=== PATIENT | female | born 1995 ===

== ENCOUNTER 2025-04-19 07:30 | Inpatient (IN) | payer BC ==
[2025-04-19 08:35] LABS: APPEARANCE,URINE CLEAR; BILIRUBIN,URINE NEGATIVE (NEGATIVE); COLOR,URINE YELLOW; GLUCOSE,URINE 100 mg/dL (NEGATIVE); KETONES,URINE NEGATIVE (NEGATIVE); LEUKOCYTE ESTERASE,URINE NEGATIVE (NEGATIVE); NITRITE,URINE NEGATIVE (NEGATIVE); OCCULT BLOOD,URINE NEGATIVE (NEGATIVE); PH,URINE 6.5 (5.0-8.0); PROTEIN,URINE NEGATIVE (NEGATIVE); UROBILINOGEN,URINE 0.2 EU/dL (<2.0)
[2025-04-19 08:41] LABS: BACTERIA,URINE FEW (NEGATIVE); EPITHELIAL CELLS,URINE RARE (NONE-FEW); RBC,URINE 0-1 (0-2/HPF); WBC,URINE 0-2 (0-5/HPF)
[2025-04-19] MEDS ORDERED: Methylergonovine 0.2 MG/1 ML Amp IM PRN (09:18)
[2025-04-19] MEDS ORDERED: Sodium Chloride 0.9% 2.5 ML Syringe FLUSH PRN (09:18)
[2025-04-19] MEDS ORDERED: Misoprostol 200 MCG Tab PO PRN (09:18)
[2025-04-19] MEDS ORDERED: Terbutaline 1 MG/ML SDV SUBCUT PRN (09:18)
[2025-04-19] MEDS ORDERED: Sodium Chloride 0.9% 20 ML SDV IV PRN (09:18)
[2025-04-19] MEDS ORDERED: Butorphanol 1 MG/ML SDV IVPUSH PRN (09:18)
[2025-04-19] MEDS ORDERED: Water For Irrigation,Sterile 1,000 ML Container IRR PRN (09:18)
[2025-04-19] MEDS ORDERED: Carboprost Tromethamine 250 MCG/1 mL Vial IM PRN (09:18)
[2025-04-19] MEDS ORDERED: Misoprostol 25 MCG (1/4 of 100 MCG) Tab VAG PRN (09:18)
[2025-04-19] MEDS ORDERED: Sodium Chloride 0.9% 10 ML Syringe FLUSH PRN (09:18)
[2025-04-19] MEDS ORDERED: Lidocaine 1% 50 ML MDV INJECT PRN (09:18)
[2025-04-19] MEDS ORDERED: Oxytocin/0.9 % Sodium Chloride 30 UNIT/500 ML BAG IV SCH (09:30)
[2025-04-19 10:00] LABS: HEMATOCRIT 38.5 % (37.0-47.0); HEMOGLOBIN 12.7 g/dL (12.0-16.0); MEAN CORPUSCULAR HEMOGLOBIN 28.6 pg (28.0-32.0); MEAN CORPUSCULAR VOLUME 86.7 fL (83.0-99.0); MEAN PLATELET VOLUME 9.9 fL (9.4-12.3); PLATELET COUNT,PLT 225 K/uL (150-400); RED BLOOD CELL COUNT 4.44 M/uL (4.10-5.30); WHITE BLOOD CELL COUNT,WBC 11.01 K/uL (3.9-11.3)
[2025-04-19] MEDS: Misoprostol 25 MCG (1/4 of 100 MCG) Tab VAG PRN (10:01)
[2025-04-19] MEDS: Oxytocin/0.9 % Sodium Chloride 30 UNIT/500 ML BAG IV SCH (14:47)
[2025-04-19] MEDS: Lactated Ringers 1,000 ML IV SCH (14:47)
[2025-04-19] MEDS ORDERED: Phenylephrine HCl In 0.9% NaCl 1 MG/10 ML Syringe ONE (16:10)
[2025-04-19] MEDS ORDERED: Ropivacaine HCl/PF 200 ML ONE (16:10)
[2025-04-19] MEDS ORDERED: dexmedeTOMIDine HCl 200 MCG/2 ML SDV ONE (16:10)
[2025-04-19] MEDS ORDERED: Bupivacaine 0.5% 10 ML SDV ONE (16:10)
[2025-04-19] MEDS: Ropivacaine HCl/PF 400 MG in Premix Bag 1 BAG EPIDUR SCH (16:30)
[2025-04-19] MEDS ORDERED: ePHEDrine 50 MG/ML SDV IVPUSH PRN (16:32)
[2025-04-19] MEDS ORDERED: dexmedeTOMIDine HCl 200 MCG/2 ML SDV EPIDUR SCH (16:45)
[2025-04-19] MEDS: Ondansetron 4 MG/2 ML SDV IVPUSH PRN (17:35)
[2025-04-19] MEDS: Phenylephrine HCl In 0.9% NaCl 1 MG/10 ML Syringe IVPUSH PRN (17:40)
[2025-04-19] MEDS ORDERED: oxyCODONE 5 MG Tab PO PRN (22:35)
[2025-04-19] MEDS ORDERED: Aluminum Hydroxide/Magnesium Hydroxide/Simethicone Susp 30 ML Cup PO PRN (22:35)
[2025-04-19] MEDS ORDERED: Lanolin 100% Cream 7 GM Tube TOP PRN (22:35)
[2025-04-19 22:53] LABS: PH,UMBILICAL ARTERIAL 7.32 (7.18-7.38); PH,UMBILICAL VENOUS 7.18 (7.25-7.45)
[2025-04-20] MEDS: Witch Hazel Medicated Pads 40/Jar TOP PRN (00:25)
[2025-04-20] MEDS: Benzocaine/Menthol 20%-0.5% Spray 78 GM Cannister TOP PRN (00:25)
[2025-04-20] MEDS: Docusate Sodium 100 MG Cap PO PRN (00:26)
[2025-04-20] MEDS: Acetaminophen 500 MG Tab PO PRN (00:26)
[2025-04-20] MEDS: Ibuprofen 800 MG Tab PO PRN (00:27)
[2025-04-20 05:51] LABS: HEMATOCRIT 36.5 % (37.0-47.0); HEMOGLOBIN 12.2 g/dL (12.0-16.0)
[2025-04-21 10:53] LABS: TSH ULTRASENSITIVE 2.95 uIU/mL (0.36-3.74)
[2025-04-22] MEDS ORDERED: Acidophilus with Citrus Pectin/L.acidophilus Tab PO SCH (09:00)
[2025-04-22] MEDS ORDERED: Prenatal Multivitamin with Calcium/Folic Acid/Iron Tab PO SCH (09:00)
== END 2025-04-21 12:06 | disposition home or self-care (01) | DRG 807 ==
LOC: MW.OBCHECK 07:30 → MW.OB 07:32 → OBSVTOIN 22:19 → MW.OBCHECK 22:23 → MW.OB 04-20 00:43
PROVIDERS: ADMIT Obstetrics & Gynecology; ATTEND Obstetrics & Gynecology
PROC: 10E0XZZ Delivery of Products of Conception, External Approach (ICD-10-PCS; principal; 2025-04-19)
PROC: 3E0DXGC Introduction of Other Therapeutic Substance into Mouth and Pharynx, External Approach (ICD-10-PCS; 2025-04-19)
PROC: 0HQ9XZZ Repair Perineum Skin, External Approach (ICD-10-PCS; 2025-04-19)
PROC: 3E0R3BZ Introduction of Anesthetic Agent into Spinal Canal, Percutaneous Approach (ICD-10-PCS; 2025-04-19)
PROC: 00HU33Z Insertion of Infusion Device into Spinal Canal, Percutaneous Approach (ICD-10-PCS; 2025-04-19)
PROC: 4A1HXCZ Monitoring of Products of Conception, Cardiac Rate, External Approach (ICD-10-PCS; 2025-04-19)
DX: O48.1 Prolonged pregnancy (principal); Z37.0 Single live birth; Z3A.49 Greater than 42 weeks gestation of pregnancy; O69.81X0 Labor and delivery complicated by cord around neck, without compression, not applicable or unspecified; O70.0 First degree perineal laceration during delivery
CPT/HCPCS: 36415; 59025; 59409; 81001; 82803; 84112; 84443; 85014; 85018; 85027; 86592; 86850; 86900; 86901; 93005; A9270-GY; J0665; J2371; J2405; J2590; J2795; J7120